=== PATIENT | male | born 1995 | race Caucasian/White ===

== ENCOUNTER 2017-03-31 18:06 | Emergency (ER) | payer OTHER ==
[2017-03-31] MEDS ORDERED: DIPHTH,PERTUSS(ACELL),TET 0.5 ML DISP.SYRIN IM ONE (18:32)
--- NOTE | 2017-03-31 18:32 | PDOC ---
Rapid Medical Evaluation Medical Evaluation: Allergies Allergy/AdvReac Type Severity Reaction Status Date / Time No Known Allergies Allergy Verified 03/31/17 18:29 03/31/17 18:29 I have performed a brief in-person evaluation of this patient. The patient presents with a chief complaint of: Scalp laceration after being hit in the head with ski lift, no LOC/AVINA/dizziness, n/v Pertinent physical exam findings:~2 cm linear laceration to occiput I have ordered the following:tetanus The patient will proceed to the ED for further evaluation.
[2017-03-31 18:36] VITALS: BP 115/58; PULSE 81; TEMP 98.2; BMI 26.6
[2017-03-31] MEDS ORDERED: LIDOCAINE 1%/EPI 1:100000 (20 ML MULTI DOSE VIAL) ONE (18:58)
[2017-03-31] MEDS ORDERED: IBUPROFEN 600 MG TABLET (FP) PO ONE ×2 (19:12→19:16)
[2017-03-31] MEDS ORDERED: BACITRACIN 15 GM TUBE TOPICAL OINTMENT ONE (19:12)
[2017-03-31] MEDS ORDERED: BACITRACIN 15 GM TUBE TOPICAL OINTMENT TP ONE (19:16)
--- NOTE | 2017-03-31 19:18 | PDOC ---
History of Present Illness - General Chief Complaint: Injury Stated Complaint: HEAD INJURY Time Seen by Provider: 03/31/17 18:30 History Source: Patient Exam Limitations: No Limitations - History of Present Illness Initial Comments: 03/31/17 19:17 Patient states was skiing in [place] today, got off the ski lift slipped and fell backwards striking the back of his head on the lift chair. There was no LOC, no vomiting, no mental status changes. States did not know had a laceration until one of his friends told him he was bleeding. Incident occurred approximately 4 hours ago Occurred: reports: this afternoon Severity: reports: mild, moderate Pain Location: reports: head Method of Injury: Yes: direct blow Modifying Factors: improves with: None Loss of Consciousness: no loss of consciousness Associated Symptoms (Fall): denies symptoms, headache Past History - Travel Traveled outside of the country in the last 30 days: No Close contact w/someone who was outside of country & ill: No - Past Medical History Allergies/Adverse Reactions: Allergies Allergy/AdvReac Type Severity Reaction Status Date / Time No Known Allergies Allergy Verified 03/31/17 18:30 Home Medications: Ambulatory Orders NK [No Known Home Medication] 03/31/17 CVA: No COPD: No DVT: No - Immunization History Immunization Up to Date: Yes - Suicide/Smoking/Psychosocial Hx Smoking History: Never smoked Have you smoked in the past 12 months: No Information on smoking cessation initiated: No Hx Alcohol Use: No Drug/Substance Use Hx: No Substance Use Type: None Review of Systems - Review of Systems Able to Perform ROS?: Yes Is the patient limited Cypriot proficient: Yes Constitutional: Yes: Symptoms Reported, See HPI, Malaise HEENTM: Yes: See HPI. No: Symptoms Reported, Eye Pain Respiratory: Yes: See HPI. No: Cough Neurological: Yes: Symptoms reported, See HPI, Headache. No: Numbness, Paresthesia All Other Systems: Reviewed and Negative *Physical Exam - Vital Signs Last Vital Signs Temp Pulse Resp BP Pulse Ox 98.2 F 81 17 115/58 98 03/31/17 18:31 03/31/17 18:31 03/31/17 18:31 03/31/17 18:31 03/31/17 18:31 - Physical Exam General Appearance: Yes: Nourished, Appropriately Dressed, Apparent Distress, Mild Distress HEENT: positive: DANISHA, Normal ENT Inspection, TMs Normal (no hemotympanum, no drainage from nose or ears when no evidence of skull fracture), Rhinorrhea, Other (patient with 3 cm laceration midpoint top occiput) Neck: positive: Supple. negative: Tender Respiratory/Chest: positive: Lungs Clear Gastrointestinal/Abdominal: positive: Soft Extremity: positive: Normal Capillary Refill, Normal Range of Motion Integumentary: positive: Normal Color, Dry Neurologic: positive: explosive specialist II-XII NML intact, Fully Oriented, Alert, Normal Mood/ Affect, Normal Response, Motor Strength 5/5 Procedures - Laceration/Wound Repair Right Head Wound Length: 2.6 to 5.0 cm Wound Explored: clean Irrigated w/ Saline: Yes Betadine Prep: Yes Anesthesia: 1% Lidocaine w/ Epi Wound Repaired With: Wells Tannery Number of Sutures: 5 Layer Closure: No ED Treatment Course - Medications Given in the ED: ED Medications Discontinued Medications Generic Name Dose Route Start Last Admin Trade Name Freq PRN Reason Stop Dose Admin Diphtheria/Tetanus/Acell Pertussis 0.5 ml 03/31/17 18:32 03/31/17 18:54 Boostrix - IM 03/31/17 18:33 0.5 ml .ONCE ONE Administration Progress Note - Progress Note Progress Note: Scalp laceration with no significant head injury. 5 Trell placed and tetanus/ diphtheria/pertussis booster updated today *DC/Admit/Observation/Transfer Diagnosis at time of Disposition: Superficial injury head Qualifiers: Encounter type: initial encounter Qualified Code(s): S00.90XA - Unspecified superficial injury of unspecified part of head, initial encounter Scalp laceration Qualifiers: Encounter type: initial encounter Qualified Code(s): S01.01XA - Laceration without foreign body of scalp, initial encounter - Discharge Dispostion Disposition: HOME Condition at time of disposition: Stable Admit: No - Referrals - Patient Instructions Printed Discharge Instructions: DI for Closed Head Injury Additional Instructions: Rest, no exercise or gym until trell are removed May use ice packs tonight as needed for swelling and pain Put a towel over pillow/old pillowcase to avoid damage from bacitracin and bleeding to linens until trell removed Use antibiotic cream/ointment once in the morning once at night until trell are removed May use Tylenol or Motrin for pain relief Return to emergency department for worsening pain, swelling, bleeding, or evidence of serious head injury Staple removal in 5-7 days - Post Discharge Activity Forms/Work/School Notes: Back to Work
[2017-03-31] MEDS ORDERED: LIDOCAINE 1%/EPI 1:100000 (50 ML MULTI DOSE VIAL) INF ONE (19:19)
== END 2017-03-31 19:23 | disposition home or self-care (01) ==
LOC: JERFT 18:06
PROC: 0HQ0XZZ Repair Scalp Skin, External Approach (ICD-10-PCS; principal; 2017-03-31)
PROC: 3E0234Z Introduction of Serum, Toxoid and Vaccine into Muscle, Percutaneous Approach (ICD-10-PCS; 2017-03-31)
DX: S01.01XA Laceration without foreign body of scalp, initial encounter (principal); W01.198A Fall on same level from slipping, tripping and stumbling with subsequent striking against other object, initial encounter; Y93.23 Activity, snow (alpine) (downhill) skiing, snowboarding, sledding, tobogganing and snow tubing; Y92.39 Other specified sports and athletic area as the place of occurrence of the external cause; Y99.8 Other external cause status
CPT/HCPCS: 90715; 99281-25

== ENCOUNTER 2017-04-11 15:30 | Emergency (ER) | payer OTHER ==
[2017-04-11 15:36] VITALS: BP 113/66; PULSE 85; TEMP 98; BMI 27.3
--- NOTE | 2017-04-11 16:07 | PDOC ---
Suture Removal/Wound Check HPI - History of Present Illness Chief Complaint: Suture/Staple Removal(Here) Stated Complaint: Suture/Staple Removal Time Seen by Provider: 04/11/17 15:53 History Source: Yes: Patient Exam Limitations: Yes: No Limitations Treated at: [facility] ED - Previous ED Treatment Type of procedure performed on last visit: Yes: Laceration Repair Tetanus Immunization: Yes: Up to Date Antibiotics Prescribed: No Past History - Travel Traveled outside of the country in the last 30 days: No Close contact w/someone who was outside of country & ill: No - Past Medical History Allergies/Adverse Reactions: Allergies Allergy/AdvReac Type Severity Reaction Status Date / Time No Known Allergies Allergy Verified 04/11/17 15:36 Home Medications: Ambulatory Orders NK [No Known Home Medication] 03/31/17 CVA: No COPD: No DVT: No - Immunization History Immunization Up to Date: Yes - Suicide/Smoking/Psychosocial Hx Smoking History: Never smoked Have you smoked in the past 12 months: No Hx Alcohol Use: No Drug/Substance Use Hx: No Substance Use Type: None Suture Removal/Wound Check PE - Physical Exam Laceration/Wound Check Symptoms: reports: None Current Severity Level: None Maximum Severity Level: None Pain Localization: None Location of Laceration/Wound: bilateral: Head (5 trell to scalp , intact and well approximated) *Review of Systems - Review of Systems Able to Perform ROS?: Yes Constitutional: Yes: See HPI. No: Symptoms Reported, Fever, Malaise HEENTM: Yes: Symptoms Reported, See HPI, Other (5 intact trell with no swelling, redness or evidence of infection) All Other Systems: Reviewed and Negative *DC/Admit/Observation/Transfer Diagnosis at time of Disposition: Removal of trell - Referrals - Patient Instructions - Post Discharge Activity
== END 2017-04-11 16:23 | disposition home or self-care (01) ==
LOC: JERFT 15:30
DX: Z48.02 Encounter for removal of sutures (principal)
CPT/HCPCS: 99281-25

== ENCOUNTER 2022-09-27 15:12 | Emergency (ER) | payer OTHER ==
[2022-09-27 15:34] VITALS: BP 105/67; PULSE 82; RESP 19; TEMP 98.8; BMI 31.0
[2022-09-27] MEDS ORDERED: IBUPROFEN 600 MG TABLET (FP) PO ONE ×2 (16:06→16:13)
== END 2022-09-27 17:39 | disposition home or self-care (01) ==
LOC: JERFT 15:12 → JER 15:12 → JERFT 17:39
DX: M79.604 Pain in right leg (principal); W22.8XXA Striking against or struck by other objects, initial encounter; Y99.0 Civilian activity done for income or pay
CPT/HCPCS: 73590-TC-RT-FY; 99283-25